=== PATIENT | male | born 1940 ===

== ENCOUNTER 2018-04-03 14:14 | Observation (INO) | payer MEDICARE, OTHER ==
[2018-04-01 12:08] VITALS: BMI 27.4
[2018-04-03] MEDS ORDERED: ceFAZolin IV 1 gm in Dextrose 1 GM/50 ML BAG IVPB ONE (16:19)
[2018-04-03] MEDS ORDERED: Gentamicin 80 mg in 0.9% NS 80 MG/100 ML BAG IVPB ONE (16:20)
[2018-04-03] MEDS ORDERED: ceFAZolin 1 GM in Sodium Chloride 0.9% 100 ML IVPB ONE (16:30)
[2018-04-03] MEDS ORDERED: Lidocaine 2% w Epi 1:200,000 Pf Inj ONE (18:21)
[2018-04-03] MEDS ORDERED: Midazolam 2 MG/2 ML VIAL ONE ×3 (18:29→19:03)
[2018-04-03] MEDS ORDERED: Lidocaine Hydrochloride 5 ML INJ ONE (18:48)
--- NOTE | 2018-04-03 21:18 | CP.PCM.HP ---
History of Present Illness - History of Present Illness History of Present Illness: Patient is admitted from [facility] for pacemaker generator replacement. Dr. Milton Helton and Dr. Jannette Gil are his physicians. Chief Complaint: Shortness of breath HPI: This is a 77 yo man with a CV history of AV block with previous PPM [employer] (last generator change in 2008), CRI, anemia, HTN, mixed hyperlipidemia, DM. Over the past few weeks he has noted the development of dyspnea on exertion. He gets out of breath if he walks quickly. No associated dizziness. No modifying factors. He was seen at his physicians office and his device was found to be at EOS. His rhythm was sinus with asynchronous ventricular pacing. He now presents for PPM generator replacement. Of note, there is scant tissue above device and PMEDHX: PPM, HTN, AV block, CRI, anemia, DM, mixed hyperlipidemia Social Hx: No tobacco or alcohol Family HX: No premature CAD or sudden . Meds asa 325 enalapril 20 gemfibrozil 600 glyburide 5 metformin 1000 metoprolol 50 sitaglipin 50 Cath 01/24/12 Nonobstructive CAD EF 50% Stress 02/20/16 EF 60-65% Partially reversible inferior defect Echo 02/20/16 EF 40-45% inflat HK LV 5.6/4.5 LA 4.0 Present on Admission - Present on Admission Any Indicators Present on Admission: No History of DVT/PE: No History of Uncontrolled Diabetes: No Urinary Catheter: No Decubitus Ulcer Present: No Review of Systems - Constitutional Constitutional: Fatigue. absent: Chills, Fever - EENT Eyes: Other Ears: Abnormal Hearing Nose/Mouth/Throat: absent: Epistaxis, Nasal Congestion - Cardiovascular Cardiovascular: Dyspnea. absent: Chest Pain - Respiratory Respiratory: absent: Cough, Snoring - Gastrointestinal Gastrointestinal: Bloating. absent: Abdominal Pain, Belching - Genitourinary Genitourinary: absent: Hematuria - Musculoskeletal Musculoskeletal: Back Pain - Integumentary Integumentary: absent: Rash, Sores - Neurological Neurological: Abnormal Gait, Other (uses a walker) - Endocrine Endocrine: absent: Flushing, Heat Intolorance - Hematologic/Lymphatic Hematologic: absent: Easy Bleeding, Easy Bruising Past Patient History - Infectious Disease Hx of Infectious Diseases: None - Past Social History Smoking Status: Never Smoked - CARDIAC Hx Cardia Arrhythmia: Yes Hx Pacemaker: Yes (MEDTRONIC) Other/Comment: Cardiac Cath with stents - NEUROLOGICAL Hx Transient Ischemic Attacks (TIA): Yes - HEMATOLOGICAL/ONCOLOGICAL Hx Blood Transfusions: No Hx Blood Transfusion Reaction: No - MUSCULOSKELETAL/RHEUMATOLOGICAL Hx Musculoskeletal Disorders: No - PSYCHIATRIC Hx Substance Use: No - SURGICAL HISTORY Hx Cardiac Catheterization: Yes Other/Comment: Pacemaker - ANESTHESIA Hx Anesthesia Reactions: No Hx Malignant Hyperthermia: No Meds Allergies/Adverse Reactions: Allergies Allergy/AdvReac Type Severity Reaction Status Date / Time No Known Allergies Allergy Verified 12/26/11 12:14 Physical Exam - Constitutional Appears: Well, Non-toxic - Head Exam Head Exam: ATRAUMATIC, NORMAL INSPECTION - Eye Exam Eye Exam: EOMI, Normal appearance Pupil Exam: PERRL - ENT Exam ENT Exam: Mucous Membranes Moist, Normal Exam - Neck Exam Neck exam: Positive for: Normal Inspection - Respiratory Exam Respiratory Exam: Clear to Auscultation Bilateral - Cardiovascular Exam Cardiovascular Exam: REGULAR RHYTHM Additional comments: PPM site easily palpable with minimal subcutaneous fat - GI/Abdominal Exam GI & Abdominal Exam: Normal Bowel Sounds - Extremities Exam Extremities exam: Negative for: pedal edema - Neurological Exam Neurological exam: Alert, Oriented x3 - Psychiatric Exam Psychiatric exam: Normal Affect, Normal Mood - Skin Skin Exam: Dry, Warm Results - Vital Signs Recent Vital Signs: Last Vital Signs Temp 97 F L 04/03/18 19:30 Pulse 65 04/03/18 20:15 Resp 17 04/03/18 20:15 BP 122/65 04/03/18 20:15 Pulse Ox 98 04/03/18 20:15 - Labs Labs: Laboratory Results - last 24 hr 04/03/18 20:40 POC Glucose (mg/dL) 133 H Assessment & Plan - Assessment and Plan (Free Text) Assessment: 77 yo man with history of AV block, PPM (MDT), HTN, DM, mixed hyperlipidemia. His PPM is at [place] and he is symptomatic with exertion PPM:schedule gen change. move device to subpectoral position. HTN: stable DM: stable AV block: pacemaker
--- NOTE | 2018-04-03 21:29 | PCM.OP ---
Operative Report - Operative Report Date of Surgery/Procedure: 04/03/18 Time of Surgery/Procedure: 18:30 Surgeon: [employer] Principal: None Anesthesia/Sedation: Monitored sedation with fentanyl and versed. Pre-Operative Diagnosis: Battery depletion of pacemaker and AV block Post-Operative Diagnosis: Battery depletion of pacemaker and AV block Indication for Surgery: Battery Depletion and AV block Operative Findings: PSA as reported Procedure/Operation Description: Pacemaker generator replacement and pocket revision. Estimated Blood Loss: 30 cc Drains: None Complications: None Specimen: None Discharge & Condition: Stable
[2018-04-04] MEDS: Oxycodone/Acetaminophen 5/325 mg Tab PO PRN ×2 (00:27→12:44)
[2018-04-04 07:25] VITALS: O2SAT 96
--- NOTE | 2018-04-04 13:59 | CP.PCM.DIS ---
Provider - Provider Date of Admission: 04/03/18 19:44 Attending physician: Agnus Smith MD Primary care physician: Dr. Jannette Gil Time Spent in preparation of Discharge (in minutes): 30 Hospital Course - Lab Results Lab Results: Most Recent Lab Values POC Glucose (mg/dL) 133 mg/dL (65-110) H 04/03/18 20:40 - Hospital Course Hospital Course: Patient underwent PPM generator replacement. Was stable the following day. Pacemaker site looked good and minimal discomfort. Discharged home. Discharge Exam - Head Exam Head Exam: ATRAUMATIC, NORMAL INSPECTION - Eye Exam Eye Exam: EOMI, Normal appearance - ENT Exam ENT Exam: Mucous Membranes Moist - Neck Exam Neck exam: Full Rom - Respiratory Exam Respiratory Exam: Clear to PA & Lateral, NORMAL BREATHING PATTERN - Cardiovascular Exam Cardiovascular Exam: REGULAR RHYTHM Additional comments: ppm site c/d/i with mild tenderness - GI/Abdominal Exam GI & Abdominal Exam: Normal Bowel Sounds - Neurological Exam Neurological exam: Alert, Normal Gait, Oriented x3 - Skin Skin Exam: Dry, Warm Discharge Plan - Follow Up Plan Condition: GOOD Disposition: HOME/ ROUTINE
--- NOTE | 2018-04-04 16:18 | RAD ---
Date of service: 04/03/2018 HISTORY: post-pacemaker COMPARISON: No prior. FINDINGS: LUNGS: Minor bibasilar atelectasis. PLEURA: No significant pleural effusion identified, no pneumothorax apparent. CARDIOVASCULAR: In situ bipolar pacemaker/defibrillator. Minor aortic atherosclerotic calcification present. Heart size upper limits of normal. OSSEOUS STRUCTURES: Degenerative changes both shoulder girdles. Degenerative spondylosis thoracic spine VISUALIZED UPPER ABDOMEN: Normal. OTHER FINDINGS: None. IMPRESSION: In situ bipolar pacemaker/defibrillator Mild bibasilar atelectasis.
[2018-04-04 16:40] VITALS: BP 141/66; PULSE 72; RESP 18; TEMP 98.3
--- NOTE | 2018-04-12 06:31 | OP ---
PROCEDURE DATE: 04/03/2018 PROCEDURE: Pacemaker generator replacement. SURGEON: Angus Arellano MD COMPLICATIONS: None. ESTIMATED BLOOD LOSS: 30 mL. TYPE OF ANESTHESIA: Monitored care. BUSINESS APPLICATIONS MANAGER: None. SPECIMEN: None. : Milton Helton MD : Jannette Gil MD CLINICAL HISTORY: This is a very pleasant 77-year-old man with a cardiovascular history significant for complete AV block with previous pacemaker placement (last generator replacement was in 2008), renal insufficiency, anemia, hypertension, mixed hyperlipidemia, and diabetes mellitus. Over the past few weeks, she has noted development of dyspnea on exertion, gets out of breath walking quickly. He was seen at physician's office and his device was found to be at end of service. He was in sinus rhythm with asynchronous ventricular pacing and with the pacemaker exhibiting end of life behavior, he now presents for pacemaker generator replacement. DESCRIPTION OF PROCEDURE: The patient was brought to cardiac electrophysiology laboratory, prepped in standard fashion. Continuous blood pressure, heart rate, electrocardiogram and pulse oximetry monitored throughout the procedure. The area over the left chest was local injection of 2% lidocaine and a #10 blade was used to make a 3-cm incision along the line of previous scar. With careful blunt dissection and electrocautery performed, we identified the device and freed it from fibrous tissue. There were scant subcutaneous tissue above the device, so we elected to move the device to a subpectoral position. The pectoralis muscle was divided and a new pocket was created below it. The leads were attached using pacing and sensing analyzer and found to be functioning normally. The pocket was irrigated using bacitracin-containing saline solution. Leads were connected to a new pacemaker generator which was placed into the pocket and secured to the fascia without substance. Then, subcutaneous tissue was closed with interrupted stitches of 2-0 Vicryl. Muscle layer was closed with interrupted stitches of 2-0 Vicryl. Superficial subcutaneous tissue was closed with interrupted stitches of 3-0 Vicryl. Subcuticular tissue was closed with running stitches of 4-0 Monocryl. Dermabond was applied to incision as well as a pressured dressing. He tolerated the procedure well. There were no complications. FINDINGS: 1. Device is a Mgv, serial number [id number]. 2. Pacing and sensing analysor measurement 5.2 ohms and impendence 532 ohms. Capillary threshold 0.8 volts at 0.5 milliseconds. There are no sensed ventricular electrograms, impendence 604 ohms, capillary threshold 0.6 and 0.4. CONCLUSION: Successful pacemaker generator replacement. No issues. Successful relocation of device to subpectoral pocket. PLAN: Routine followup. Angus Arellano MD cc: Milton Helton MD and Jannette iGl MD
== END 2018-04-04 15:00 | disposition home or self-care (01) ==
LOC: C.OPSURG 14:14 → C.CATHLAB 14:14 → INTOOBSV 19:44 → C.5S 19:44
PROVIDERS: ADMIT Internal Medicine Clinical Cardiac Electrophysiology; ATTEND Internal Medicine Clinical Cardiac Electrophysiology
PROC: 0JPT0PZ Removal of Cardiac Rhythm Related Device from Trunk Subcutaneous Tissue and Fascia, Open Approach (ICD-10-PCS; principal; 2018-04-03)
PROC: 0JH606Z Insertion of Pacemaker, Dual Chamber into Chest Subcutaneous Tissue and Fascia, Open Approach (ICD-10-PCS; 2018-04-03)
PROC: 0JWT0PZ Revision of Cardiac Rhythm Related Device in Trunk Subcutaneous Tissue and Fascia, Open Approach (ICD-10-PCS; 2018-04-03)
DX: Z45.010 Encounter for checking and testing of cardiac pacemaker pulse generator [battery] (principal); I44.2 Atrioventricular block, complete; I12.9 Hypertensive chronic kidney disease with stage 1 through stage 4 chronic kidney disease, or unspecified chronic kidney disease; N18.9 Chronic kidney disease, unspecified; E11.22 Type 2 diabetes mellitus with diabetic chronic kidney disease; E78.2 Mixed hyperlipidemia; Z86.73 Personal history of transient ischemic attack (TIA), and cerebral infarction without residual deficits; D63.1 Anemia in chronic kidney disease
CPT/HCPCS: 33222; 33228; 71045; 82948; 94770; 96365; 99152; 99153; C1785; G0378; J0690; J1580; J2001; J2250; J3010